=== PATIENT | male | born 1945 | race Caucasian/White ===

== ENCOUNTER 2020-02-12 00:22 | Emergency (ER) | payer OTHER, SELFPAY ==
[2020-02-12 00:22] VITALS: BP 0/0; PULSE 0; RESP 16; O2SAT 0; BMI 19.8
--- NOTE | 2020-02-12 00:49 | CTR_ITS ---
PROCEDURE INFORMATION: Exam: CT Head Without Contrast Exam date and time: 02/12/2020 12:52 AM Age: 75 years old Clinical indication: Altered mental status/memory loss; Confusion or disorientation; Patient HX: Intubated; Additional info: AMS TECHNIQUE: Imaging protocol: Computed tomography of the head without contrast. Radiation optimization: All CT scans at this facility use at least one of these dose optimization techniques: automated exposure control; mA and/or kV adjustment per patient size (includes targeted exams where dose is matched to clinical indication); or iterative reconstruction. COMPARISON: No relevant prior studies available. RADIATION DOSE METRICS: Total DLP (mGy-cm): 895.28 FINDINGS: Brain: Mild atrophy and mild white matter chronic microvascular changes are noted. No hemorrhage or CT evidence of acute infarction is seen. Ventricles: Normal. No ventriculomegaly. Bones/joints: No fracture Sinuses: Visualized sinuses are unremarkable. No fluid levels. Mastoid air cells: Visualized mastoid air cells are well aerated. Soft tissues: A small amount venous air is present at the skull base, which is likely iatrogenic. CT/CT head wo con* [id number] IMPRESSION: No acute intracranial abnormality. Radiation Dose CTDIVOL = (mGy): DLP = 895.28 (mGy-cm)
--- NOTE | 2020-02-12 00:54 | ED_ITS ---
HPI - Altered Mental Status General: Stated Complaint: UNRESPONSIVE Time Seen by Provider: 02/12/20 00:32 Source: EMS Mode of arrival: EMS Limitations: altered mental status History of Present Illness: HPI narrative: 75-year-old male brought in by EMS. Patient's stated that he has been laying on the couch and altered over the last day. He had a recent fall as well. EMS states they got to him he was completely altered and hypotensive. They intubated him. He states that once he got here he started becoming bradycardic and he did code in the EMS. Review of Systems General: Reports: ROS unobtainable due to mental status Physical Exam Const: COMMON NORMALS: negative for patient oriented x3 EXAM LIMITATIONS: altered mental status GENERAL APPEARANCE: in distress Eye: OTHER: Pupils dilated and unresponsive Neck/C-Spine: COMMON NORMALS: supple Chest: COMMONS NORMALS: normal inspection of the chest Resp: OTHER: Patient is intubated has good breath sounds bilaterally Cardio: OTHER: Currently no pulse detected GI: COMMON NORMALS: Normal to inspection, nondistended, normoactive bowel sounds present Neuro: COMMON NORMALS: negative for patient oriented x3 Psych: COMMON NORMALS: negative for mental status grossly normal Skin: COMMON NORMALS: no rashes or lesions noted GENERAL SKIN EXAM: no rashes or lesions noted MDM - Altered Mental Status MDM Narrative: Medical decision making narrative: Patient presented with cardiac arrest. Patient received multiple doses of epinephrine along with cardioversion due to V. tach. Patient also given amiodarone. Patient did have return of spontaneous circulation. After second return of spontaneous circulation I talked to . informed me that he is a DNR and would not like any more compressions at this time. We will continue to leave him intubated. Patient was taken to CT and came back and started to become bradycardic. Did a bedside ultrasound he did not have any cardiac activity or pulse and time of was called at 1256. Patient's was at bedside. Critical Care Time Critical Care Time: Critical Care Time: Yes Total Critical Care Time: 35 Attestation: This case had a high probability of a clinically significant, sudden, or life threatening deterioration of this patient's condition which required my full and direct attention, intervention and personal management. Discharge Plan Discharge Patient Disposition: Clinical Impression: Cardiac arrest Condition: Stable Referrals: Josh Valerio [Primary Care Provider] - Coding Level of Care Code ED Field Liability Generalist for Chg Fwd Exam Detailed
--- NOTE | 2020-02-12 03:22 | PC.NURSE ---
LATE NOTE: see patient code flow sheet for med documentation; during code patient had ROSC and we were able to take him to CT scan; during that time that patients made it to the ER; it was determined by her and DR. Lopes that should the patient lose his pulse again that nothing else would be done. upon returning from CT scan, the patient indeed did have a loss of pulse again; time of 55.
== END 2020-02-12 04:06 | disposition expired ==
PROVIDERS: Emergency Provider Emergency Medicine; PCP Family Medicine
DX: I46.9 Cardiac arrest, cause unspecified (principal)
CPT/HCPCS: 12345; 70450; 99282; 99291; J0171; J0282; J0330